=== PATIENT | female | born 1945 | race Caucasian/White ===

== ENCOUNTER 2016-12-14 13:11 | Emergency (ER) | payer OTHER, SELFPAY ==
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
[2016-12-14] MEDS ORDERED: Ketorolac Tromethamine 30 MG/ML VIAL ONE (16:58)
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
== END 2016-12-14 17:23 | disposition home or self-care (01) ==
LOC: ERS 13:11
DX: S16.1XXA Strain of muscle, fascia and tendon at neck level, initial encounter (principal); R07.89 Other chest pain; V43.52XA Car driver injured in collision with other type car in traffic accident, initial encounter
CPT/HCPCS: 71020; 72040; 96372; J1885